=== PATIENT | male | born 1965 | race Native Hawaiian/Other Pacific Islander ===

== ENCOUNTER 2018-11-30 10:38 | Emergency (ER) | payer OTHER ==
[~2018-11-30] VITALS: Ht 162.6 cm; Wt 49.9 kg
[2018-11-30 10:44] VITALS: BP 136/84; TEMP 98.1
== END 2018-11-30 12:50 | disposition home or self-care (01) ==
LOC: ED 10:38
DX: S61.041A Puncture wound with foreign body of right thumb without damage to nail, initial encounter (principal); L03.818 Cellulitis of other sites; X58.XXXA Exposure to other specified factors, initial encounter; Y93.89 Activity, other specified; Y92.89 Other specified places as the place of occurrence of the external cause
CPT/HCPCS: 90471; 90715; 99282; 99283

== ENCOUNTER 2018-12-11 13:30 | Emergency (ER) | payer OTHER ==
[~2018-12-11] VITALS: Ht 162.6 cm; Wt 49.9 kg
[2018-12-11 14:20] VITALS: BP 134/90; TEMP 98
== END 2018-12-11 14:20 | disposition home or self-care (01) ==
LOC: ED 13:30
DX: L08.9 Local infection of the skin and subcutaneous tissue, unspecified (principal); Z98.890 Other specified postprocedural states
CPT/HCPCS: 99282